=== PATIENT | male | born 1950 | race African-American/Black ===

== ENCOUNTER 2017-07-26 11:33 | Day surgery (SDC) | payer BC ==
[2017-07-25 09:40] VITALS: BMI 19.9
[2017-07-26 16:10] VITALS: TEMP 98.2
[2017-07-26 18:46] VITALS: BP 131/68; PULSE 98
== END 2017-07-26 17:50 | disposition home or self-care (01) ==
LOC: JASU-SURG 11:33
PROVIDERS: ATTEND Urology
PROC: 0V503ZZ Destruction of Prostate, Percutaneous Approach (ICD-10-PCS; principal; 2017-07-26)
DX: C61 Malignant neoplasm of prostate (principal)
CPT/HCPCS: 55873; C2618; 94760